=== PATIENT | male | born 1980 | race American Indian/Alaskan Native ===

== ENCOUNTER 2017-06-04 14:32 | Emergency (ER) | payer MEDICAID, OTHER ==
[2017-06-04 14:42] VITALS: BP 126/82; PULSE 109; RESP 18; TEMP 97.8; O2SAT 100
[2017-06-04] MEDS ORDERED: Silver Sulfadiazine 1% Cream (20 gm) TOP STA (15:23)
[2017-06-04] MEDS ORDERED: Silver Sulfadiazine 1% Cream (20 gm) ONE (15:30)
--- NOTE | 2017-06-04 15:49 | RAD ---
PROCEDURE: Left Knee Radiographs. HISTORY: COMPARISON: None available. FINDINGS: BONES: No acute displaced fracture. JOINTS: No dislocation. JOINT EFFUSION: No significant joint effusion. OTHER FINDINGS: None. IMPRESSION: No acute displaced fracture, dislocation, or significant joint effusion identified. If symptoms persist, or if there is continued clinical concern, x-ray follow-up in 7-10 days should be considered.
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
== END 2017-06-04 16:23 | disposition home or self-care (01) ==
LOC: C.ER 14:32
DX: T24.211A Burn of second degree of right thigh, initial encounter (principal); X58.XXXA Exposure to other specified factors, initial encounter; M67.462 Ganglion, left knee